=== PATIENT | female | born 1985 | race Caucasian/White ===

== ENCOUNTER 2016-12-23 18:52 | Emergency (ER) | payer BC ==
[2016-12-23] MEDS ORDERED: KETOROLAC 60 MG/2 ML VIAL IM STA (19:25)
[2016-12-23 19:28] VITALS: BP 130/80; PULSE 94; RESP 16; TEMP 97.8
--- NOTE | 2016-12-23 19:28 | ED ---
General Adult HPI - General Stated complaint: knee pain Time Seen by Provider: 12/23/16 19:21 Source: RN notes reviewed - History of Present Illness Initial comments: 31-year-old female presents emergency Department chief complaint of right knee pain. Patient states she has been suffering from right knee pain for the past few weeks and has been seen her family care doctor for this. Patient states she recently was driving vacation states that she noticed that her knee pain worsened as well as the leg became swollen. Patient states she states the pain into the calf. Patient states she's getting pain along the anterior knee as well. Patient denies any falls traumas or injuries that she is aware of but she states that she was concerned due to her symptoms so she thought that she should be evaluated. Patient states she has not had any other symptoms at this. Patient denies any chest pain or shortness of breath.Patient denies any recent fever, chills, shortness of breath, chest pain, back pain, abdominal pain , nausea vomiting, numbness or tingling, dysuria or hematuria, constipation or diarrhea, headaches or visual changes, or any other current symptoms. - Related Data Home Medications Medication Instructions Recorded Confirmed Gabapentin [Gabapentin] 600 mg PO HS 12/23/16 12/23/16 Previous Rx's Medication Instructions Recorded Ibuprofen [Motrin] 600 mg PO Q6HR PRN #20 tab 12/23/16 Allergies Allergy/AdvReac Type Severity Reaction Status Date / Time No Known Allergies Allergy Verified 12/23/16 19:27 Review of Systems ROS Statement: Those systems with pertinent positive or pertinent negative responses have been documented in the HPI. ROS Other: All systems not noted in ROS Statement are negative. Past Medical History Past Medical History: Diabetes Mellitus History of Any Multi-Drug Resistant Organisms: None Reported Past Surgical History: Tonsillectomy Additional Past Surgical History / Comment(s): ankle surgury Past Anesthesia/Blood Transfusion Reactions: No Reported Reaction Past Psychological History: No Psychological Hx Reported Smoking Status: Former smoker Past Alcohol Use History: None Reported Past Drug Use History: None Reported - Past Family History Mother Family Medical History: Coronary Artery Disease (CAD) General Exam - General Exam Comments Initial Comments: General: The patient is awake and alert, in no distress, and does not appear acutely ill. Neck: The neck is supple, there is no tenderness. Cardiovascular: There is a regular rate and rhythm. No murmur, rub or gallop is appreciated. Respiratory: Lungs are clear to auscultation, respirations are non-labored, breath sounds are equal. No wheezes, stridor, rales, or rhonchi. Musculoskeletal: Sensation intact with 2+ pulses. Extremity. Vital motion of right ankle and right knee. Negative Homans sign. Some tenderness anterior to the medial aspect. Neurological: CN II-XII intact, There are no obvious motor or sensory deficits. Coordination appears grossly intact. Speech is normal. Skin: Skin is warm and dry and no rashes or lesions are noted. Psychiatric: Normal mood and affect. Course Vital Signs 12/23/16 19:20 Temperature 97.8 F Pulse Rate 94 Respiratory 16 Rate Blood Pressure 130/80 O2 Sat by Pulse 98 Oximetry Medical Decision Making - Medical Decision Making 31-year-old female presents emergency Department chief complaint of right knee pain. This time patient underwent AN X-RAY DOES NOT SHOW AN ACUTE PROCESS. WE DISCUSSED MOST LIKELY PATIENT HAS A RIGHT KNEE SPRAIN. WE DID GIVE HER FOLLOW- UP WITH ORTHOPEDIC RETURN [facility]ERS. WE DISCUSSED ALL PATIENT'S QUESTIONS. SHE STATED THAT SHE UNDERSTOOD THE PLAN. SHE WILL BE DISCHARGED HOME. - Radiology Data Radiology results: report reviewed, image reviewed Disposition Clinical Impression: Right knee sprain Disposition: HOME SELF-CARE Condition: Stable Instructions: Knee Sprain (ED) Additional Instructions: Please use medication as discussed. Please follow up with family doctor if symptoms have not improved over the next two days. Please return to the emergency room if your symptoms increase or worsen or for any other concerns. Prescriptions: Ibuprofen [Motrin] 600 mg PO Q6HR PRN #20 tab PRN Reason: Pain Referrals: Lucie Kennedy DO [Primary Care Provider] - 1-2 days Time of Disposition: 20:17
--- NOTE | 2016-12-23 19:52 | US ---
EXAMINATION TYPE: US venous doppler duplex LE RT DATE OF EXAM: 12/23/2016 7:46 PM COMPARISON: NONE CLINICAL HISTORY: Pain in right leg after traveling in a car. SIDE PERFORMED: right TECHNIQUE: The lower extremity deep venous system is examined utilizing real time linear array sonog jhonatan with graded compression, doppler sonography and color-flow sonography. VESSELS IMAGED: External Iliac Vein (EIV) Common Femoral Vein Deep Femoral Vein Greater Saphenous Vein * Femoral Vein Popliteal Vein Small Saphenous Vein * Proximal Calf Veins (* superficial vessels) Right Leg: Negative for DVT IMPRESSION: Normal exam. No evidence of deep venous thrombosis in the right leg.
--- NOTE | 2016-12-23 20:12 | XR ---
EXAMINATION TYPE: XR knee complete RT DATE OF EXAM: 12/23/2016 COMPARISON: NONE HISTORY: Pain and swelling TECHNIQUE: 3 views FINDINGS: I see no fracture nor dislocation. Joint spaces are fairly normal. There is no sign of knee joint effusion. IMPRESSION: Negative right knee exam.
--- NOTE | 2016-12-23 20:18 | ED ---
Disposition Clinical Impression: Right knee sprain Disposition: HOME SELF-CARE Condition: Stable Instructions: Knee Sprain (ED) Additional Instructions: Please use medication as discussed. Please follow up with family doctor if symptoms have not improved over the next two days. Please return to the emergency room if your symptoms increase or worsen or for any other concerns. Prescriptions: Ibuprofen [Motrin] 600 mg PO Q6HR PRN #20 tab PRN Reason: Pain Referrals: Lucie Kennedy DO [Primary Care Provider] - 1-2 days Rogers Alvarez MD [STAFF PHYSICIAN] - 1-2 days Time of Disposition: 20:18
== END 2016-12-23 20:27 | disposition home or self-care (01) ==
LOC: EC 18:52
DX: S83.91XA Sprain of unspecified site of right knee, initial encounter (principal); X58.XXXA Exposure to other specified factors, initial encounter; Z87.891 Personal history of nicotine dependence; Z79.899 Other long term (current) drug therapy
CPT/HCPCS: 73562; 93971; 99284; 96372; J1885

== ENCOUNTER 2017-04-04 17:20 | Emergency (ER) | payer BC ==
[2017-04-04] MEDS ORDERED: FAMOTIDINE 20 MG/2 ML VIAL IV STA (17:55)
[2017-04-04] MEDS ORDERED: MAG HYDROX/AL HYDROX/SIMETH 30 ML CUP PO STA (17:55)
--- NOTE | 2017-04-04 18:00 | ED ---
Chest Pain HPI - General Chief Complaint: Chest Pain Stated Complaint: chest pain and right shoulder/neck Time Seen by Provider: 04/04/17 17:49 Source: patient Mode of arrival: wheelchair Limitations: no limitations - History of Present Illness Initial Comments: This is a 31-year-old female with no past medical history who presents emergency department for chest burning. She states that it started approximate 4-1/2 hours ago. It got worse approximately 20 minutes after eating dinner which was an hour and a half ago. Since then it has improved however she has had persistent symptoms. She states that it did radiate to her right shoulder blade and also into her right neck. She states it feels like a burning sensation. She also states that she felt like her right arm was cold area that has resolved as well. No shortness of breath. The pain is not pleuritic or tearing in nature. She has no history of PE or DVT. No first 3 relatives with CAD. She does smoke. - Related Data Home Medications Medication Instructions Recorded Confirmed Gabapentin [Gabapentin] 600 mg PO BID PRN 12/23/16 04/04/17 Baclofen [Lioresal] 10 mg PO HS PRN 04/04/17 04/04/17 Previous Rx's Medication Instructions Recorded HYDROcodone/APAP 5-325MG [[place] 1 tab PO Q4HR PRN #15 tab 04/04/17 5-325] Allergies Allergy/AdvReac Type Severity Reaction Status Date / Time topiramate [From Topamax] Allergy Swelling/It Verified 04/04/17 18:39 haley Review of Systems ROS Statement: Those systems with pertinent positive or pertinent negative responses have been documented in the HPI. ROS Other: All systems not noted in ROS Statement are negative. EKG Findings - EKG Comments: EKG Findings:: EKG showing sinus bradycardia with a rate of 57. No abnormal ST segment changes or T-wave inversions. QTC is 422. Other intervals are normal. No ectopy. Past Medical History Past Medical History: Diabetes Mellitus Additional Past Medical History / Comment(s): gestational dm History of Any Multi-Drug Resistant Organisms: None Reported Past Surgical History: Tonsillectomy Additional Past Surgical History / Comment(s): ankle surgury Past Anesthesia/Blood Transfusion Reactions: No Reported Reaction Past Psychological History: No Psychological Hx Reported Smoking Status: Current every day smoker Past Alcohol Use History: Occasional Past Drug Use History: None Reported - Past Family History Mother Family Medical History: Coronary Artery Disease (CAD) General Exam - General Exam Comments Initial Comments: Constitutional: Awake alert Appears comfortable Head: Normocephalic atraumatic Eyes: no conjunctival injection No scleral icterus EOMI Neck: No JVD Supple Heart: Regular rate rhythm normal S1-S2 no murmurs Lungs: Clear to auscultation bilaterally No wheezing No rales Abdomen: Soft nondistended nontender Extremities: Non edematous DP pulses intact Radial pulses intact Neuro: A&Ox3 No focal neurologic deficits Psych: Appropriate mood and affect Limitations: no limitations Course Vital Signs 04/04/17 04/04/17 17:43 19:14 Temperature 98.1 F Pulse Rate 58 L 62 Respiratory 16 18 Rate Blood Pressure 122/77 128/59 O2 Sat by Pulse 98 Oximetry Chest Pain MDM - MDM This is a 31-year-old female who presents emergency department for chest pain and right back pain. Patient had mild elevation in LFTs and ultrasound performed that showed cholelithiasis. There was a positive sonographic Linares' s however no leukocytosis. The patient no tenderness in the right upper quadrant on physical examination. This time I do not feel the patient has acute cholecystitis. He is likely suffering from cholelithiasis. Her pain was improved over time. I'm going to send her home with surgery follow-up. She was given pain medications as needed as well. She can return if she has worsening or changing symptoms. All questions were answered. Disposition Clinical Impression: Cholelithiasis Disposition: HOME SELF-CARE Condition: Stable Instructions: Gallstones (ED) Prescriptions: HYDROcodone/APAP 5-325MG [[place] 5-325] 1 tab PO Q4HR PRN #15 tab PRN Reason: Pain Referrals: Lucie Kennedy DO [Primary Care Provider] - 1-2 days Zuleima Sultana MD [STAFF PHYSICIAN] - 1-2 days
[2017-04-04 18:28] LABS: Basophils # (A) 0.1 k/uL (0-0.2); Basophils % (A) 1 %; CH 28.8; CHCM 33.3; Eosinophils # (A) 0.3 k/uL (0-0.7); Eosinophils % (A) 3 %; HCT 42.6 % (34.0-46.0); HDW 2.42; HGB 14.4 gm/dL (11.4-16.0); Luc # (Auto) 0.16; Luc % (Auto) 2; Lymphocytes # (A) 2.7 k/uL (1.0-4.8); Lymphocytes % (A) 27 %; MCH 29.3 pg (25.0-35.0); MCHC 33.8 g/dL (31.0-37.0); MCV 86.7 fL (80.0-100.0); Mean Platelet Volume 6.7; Monocytes # (A) 0.5 k/uL (0-1.0); Monocytes % (A) 5 %; Neutrophils # (A) 6.3 k/uL (1.3-7.7); Neutrophils % (A) 63 %; RBC 4.91 m/uL (3.80-5.40); RDW 13.4 % (11.5-15.5); WBC 9.9 k/uL (3.8-10.6)
[2017-04-04 18:37] LABS: ALT 101 U/L (9-52); AST 127 U/L (14-36); Alkaline Phosphatase 75 U/L (38-126); Anion Gap 11 mmol/L; Blood Urea Nitrogen 13 mg/dL (7-17); Calcium 9.7 mg/dL (8.4-10.2); Carbon Dioxide 25 mmol/L (22-30); Chloride 104 mmol/L (98-107); Glucose 132 mg/dL (74-99); Non-African American GFR(MDRD) >60 (>60 ml/min/1.73 sqM); Sodium 140 mmol/L (137-145); Total Bilirubin 0.5 mg/dL (0.2-1.3); Total Protein 7.1 g/dL (6.3-8.2)
[2017-04-04 19:15] VITALS: RESP 18
--- NOTE | 2017-04-04 19:23 | XR ---
EXAMINATION TYPE: XR chest 2V DATE OF EXAM: 04/04/2017 COMPARISON: NONE HISTORY: Chest pain TECHNIQUE: Frontal and lateral views of the chest are obtained. FINDINGS: There is no focal air space opacity, pleural effusion, or pneumothorax seen. The cardiac silhouette size is within normal limits. The osseous structures are intact. IMPRESSION: No acute cardiopulmonary process.
--- NOTE | 2017-04-04 19:35 | US ---
EXAMINATION TYPE: US abdomen limited DATE OF EXAM: 04/04/2017 COMPARISON: NONE CLINICAL HISTORY: epigastric pain/elevated LFT. larger habitus, acute epigastic pain that radiates up to shoulder EXAM MEASUREMENTS: Liver Length: 17.9 cm Gallbladder Wall: 0.2 cm CBD: 0.5 cm Right Kidney: 13.2 x 4.7 x 5.8 cm Some exam limitations due to overlying bowel gas. Pancreas: Obscured by bowel gas Liver: upper limits in size, heterogeneous, attenuating Gallbladder: contracted with numerous stones. There is a "wall echo shadow" sign. Evidence for sonographic Linares's sign: yes CBD: wnl Right Kidney: wnl IMPRESSION: 1. Cholelithiasis. There is a wall echo shadow sign. 2. Heterogeneous liver most compatible with hepatic steatosis.
[2017-04-04 20:17] VITALS: BP 123/58; PULSE 63; TEMP 97.7
== END 2017-04-04 20:17 | disposition home or self-care (01) ==
LOC: EC 17:20
DX: K80.20 Calculus of gallbladder without cholecystitis without obstruction (principal); R79.89 Other specified abnormal findings of blood chemistry; R07.9 Chest pain, unspecified; M54.2 Cervicalgia; M25.511 Pain in right shoulder; F17.200 Nicotine dependence, unspecified, uncomplicated; Z88.8 Allergy status to other drugs, medicaments and biological substances; Z82.49 Family history of ischemic heart disease and other diseases of the circulatory system
CPT/HCPCS: 36415; 71020; 76705; 80053; 81025; 82553; 83690; 84484; 85025; 93005; 96374; 99285

== ENCOUNTER 2017-04-15 11:01 | Day surgery (SDC) | payer BC ==
[2017-04-14 09:45] VITALS: BMI 40.0
[~2017-04-15 11:01] MED LIST: DEXAMETHASONE SOD PHOSPHATE 10 MG/ML 1 ML VIAL IV ONE; HEPARIN SODIUM,PORCINE 5,000 UNIT/ML 1 ML VIAL SQ ONE; ceFAZolin 2 GM in SODIUM CHLORIDE 0.9% 100 ML IVPB ONE
[2017-04-15] MEDS: LACTATED RINGERS 1,000 ML IV SCH ×2 (11:32→11:35)
[2017-04-15] MEDS ORDERED: LIDOCAINE 1% 20 ML VIAL (10MG/ML) FOR IV START INTRADERMA ONE ×2 (11:34→11:36)
[2017-04-15] MEDS: ONDANSETRON 4 MG/2 ML VIAL IVP ONE ×2 (11:38→15:20)
[2017-04-15] MEDS ORDERED: MIDAZOLAM 2 MG/2 ML VIAL ONE (12:33)
[2017-04-15] MEDS ORDERED: SUCCINYLCHOLINE CHLORIDE 100 MG/5 ML SYR IV ONE (12:33)
[2017-04-15] MEDS ORDERED: LIDOCAINE 1% INJ 10MG/ML (20 ML MDV) ONE (12:33)
[2017-04-15] MEDS ORDERED: fentaNYL (PF) 50 MCG/ML 2 ML AMP ONE (12:33)
[2017-04-15] MEDS ORDERED: ROCURONIUM BROMIDE 10 MG/ML 10 ML VIAL IV ONE (12:33)
[2017-04-15] MEDS ORDERED: GLYCOPYRROLATE 0.2 MG/ML 2 ML VIAL ONE (12:33)
[2017-04-15] MEDS ORDERED: PROPOFOL 10 MG/ML 20 ML VIAL IV ONE (12:33)
[2017-04-15] MEDS ORDERED: NEOSTIGMINE 1 MG/ML 10 ML VIAL ONE (12:33)
[2017-04-15] MEDS ORDERED: HYDROmorphone (PF) 1 MG/ML ONE (12:33)
[2017-04-15] MEDS ORDERED: BUPIVACAINE (PF) 0.25% 30 ML VIAL SQ ONE (13:24)
--- NOTE | 2017-04-15 14:35 | P.OP ---
Date of Procedure: 04/15/17 Preoperative Diagnosis: Chronic cholecystitis Postoperative Diagnosis: Chronic cholecystitis with cholelithiasis Procedure(s) Performed: Robot assisted laparoscopic choelcystectomy Anesthesia: GETA Pathology: other Condition: stable Description of Procedure: Patient is a 31-year-old female who presented with right upper quadrant pain and a clinical diagnosis of chronic cholecystitis was made. After appropriate informed consent and answering all the patient's questions patient taken the operating placement position and given general anesthesia with endotracheal intubation. After an unsuccessful attempt to use the Veress needle for insufflation at the palmers point in the left upper quadrant was identified and Veress needle was used to enter the abdominal cavity and insufflated to 15 mmHg after confirming its position with the drop test. Once the abdomen insufflated 5 mm Optiview was used to enter the abdominal cavity through the palmers point. Three 8 mm ports were then placed for the robot in the left upper quadrant and right upper quadrant. A 12mm port was placed in the periumbilicla port and an 8 mmm port in the left upper quadrant. Once ports were then placed the patient was placed in appropriate position of left side down and reverse Trendelenburg. The robot was docked and Prograsp was taken in arm 3,cardiere in arm 2. Camera was through the 12 mm umbilical port site. And a hook cautery was taken in the arm 1. Gallbladder was retracted cephalad and superiorly. Inflammatory adhesions were taken down with the help of electrocautery. Appropriate critical view was obtained in cystic duct and artery were isolated. 2 clips proximally and 1 distally were plced in the artery and cystic duct and then and transected sharply with the help of scissors. The gallbladder was then taken off the gallbladder fossa with the help of electrocautery. All that was sucked dry. . Gallbladder was then placed in Endo Catch bag and removed through 12 port site after undocking the robot. Abdomen was then again visualized and completely irrigated and sucked dry. 12 mm port site was closed with the help of a Dave Barron under direct laparoscopic view using 0 Vicryl. At this point the procedure was terminated and all ports were removed. Local anesthesia infiltrated into the incisions skin was closed with 4-0 Monocryl and Dermabond was applied. Patient is tolerated the porcedure well with no complications. She was extubated and taken to recovery room in stable condition.
[2017-04-15 14:46] VITALS: RESP 16; TEMP 97
[2017-04-15] MEDS: HYDROmorphone 0.5 MG/0.5 ML SYRINGE IVP PRN ×2 (15:14→15:25)
[2017-04-15] MEDS ORDERED: LACTATED RINGERS 1,000 ML IV ONE (15:31)
[2017-04-15 16:18] VITALS: BP 131/85; PULSE 83
== END 2017-04-15 16:32 | disposition home or self-care (01) ==
LOC: OR 11:01
PROVIDERS: ATTEND Surgery
DX: K80.10 Calculus of gallbladder with chronic cholecystitis without obstruction (principal); E66.01 Morbid (severe) obesity due to excess calories; Z68.39 Body mass index [BMI] 39.0-39.9, adult; F17.200 Nicotine dependence, unspecified, uncomplicated; K21.9 Gastro-esophageal reflux disease without esophagitis; Z79.899 Other long term (current) drug therapy; Z79.891 Long term (current) use of opiate analgesic
CPT/HCPCS: 47562; S2900; 81025; 88304

== ENCOUNTER 2018-01-24 09:50 | Emergency (ER) | payer BC ==
[2018-01-24 10:00] VITALS: RESP 18
[2018-01-24] MEDS ORDERED: IBUPROFEN 600 MG TAB PO STA (10:17)
--- NOTE | 2018-01-24 10:58 | ED ---
General Adult HPI - General Chief complaint: Extremity Injury, Lower Stated complaint: Left Ankle Injury Time Seen by Provider: 01/24/18 10:06 Source: patient Mode of arrival: ambulatory Limitations: no limitations - History of Present Illness Initial comments: This 32-year-old female with past medical history of disc herniation and anxiety who presents today for chief complaint of left ankle and calf pain. She states that Wednesday, January 21 she was [facility] the [facility] when the sidewalk drop down and she rolled her ankle she admitted to hearing a crackling sound and there is immediately swelling on the left lateral ankle. She rolled her ankle inward. She was able to ambulate despite the pain, bearing full weight. She continued to walk on ankle the weekend because she was camping, and wanted to try to walk it off. She was taking Excedrin for pain management which she states helped minimally. Over the weekend the swelling reduced, denied ecchymosis. By Wednesday the pain or ankle decreased however she noticed pain in the posterior calf. She states that this pain is 5/10 to touch and increases with toe walking and weightbearing to a 6/7 10. She describes it as a aching pain. Pt denies any erythema, ecchymosis of the calf, hx of recent travel, hx of blood clots, contro luse, current , or hx of CA, chest pain, SOB, edema of the calf, paresthesias, numbness or loss of sensation of the lower extremities bilaterally. Patient presented to the emergency department when the pain in her calf did not subside. Pt presents to the emergency department in stable condition. Patient denies any recent fever, chills, shortness of breath, chest pain, back pain, abdominal pain, nausea or vomiting, numbness or tingling, dysuria or hematuria, constipation or diarrhea, headaches or visual changes, or any other complaints. - Related Data Home Medications Medication Instructions Recorded Confirmed Baclofen 10 mg PO HS 01/24/18 01/24/18 Escitalopram [Lexapro] 5 mg PO DAILY 01/24/18 01/24/18 Gabapentin 600 mg PO HS 01/24/18 01/24/18 Previous Rx's Medication Instructions Recorded Ibuprofen [Motrin] 600 mg PO Q8HR PRN 5 Days #15 tab 01/24/18 Allergies Allergy/AdvReac Type Severity Reaction Status Date / Time topiramate [From Topamax] Allergy Swelling/It Verified 01/24/18 10:08 haley Review of Systems ROS Statement: Those systems with pertinent positive or pertinent negative responses have been documented in the HPI. ROS Other: All systems not noted in ROS Statement are negative. Constitutional: Denies: fever, chills Eyes: Denies: vision change ENT: Denies: throat pain Respiratory: Denies: cough, dyspnea Cardiovascular: Denies: chest pain, palpitations, edema Gastrointestinal: Denies: abdominal pain, nausea, vomiting, diarrhea Genitourinary: Denies: urgency, dysuria, frequency, hematuria Musculoskeletal: Reports: as per HPI, joint swelling, arthralgia. Denies: back pain Skin: Denies: rash, lesions Neurological: Denies: headache, weakness, numbness, paresthesias, abnormal gait Past Medical History Past Medical History: Diabetes Mellitus Additional Past Medical History / Comment(s): hx gestational diabetes-2 pregnancies, gallstones, History of Any Multi-Drug Resistant Organisms: None Reported Past Surgical History: Cholecystectomy, Orthopedic Surgery, Tonsillectomy Additional Past Surgical History / Comment(s): pam heel sugery Past Anesthesia/Blood Transfusion Reactions: No Reported Reaction Past Psychological History: No Psychological Hx Reported Smoking Status: Current every day smoker Past Alcohol Use History: None Reported Past Drug Use History: None Reported - Past Family History Mother Family Medical History: No Reported History General Exam - General Exam Comments Initial Comments: General: The patient is awake and alert, in no distress, and does not appear acutely ill. Eye: Pupils are equal, round and reactive to light, extra-ocular movements are intact. No nystagmus. There is normal conjunctiva bilaterally. No signs of icterus. Ears, nose, mouth and throat: There are moist mucous membranes and no oral lesions. Neck: The neck is supple, there is no tenderness or JVD. Cardiovascular: There is a regular rate and rhythm. No murmur, rub or gallop is appreciated. Respiratory: Lungs are clear to auscultation, respirations are non-labored, breath sounds are equal. No wheezes, stridor, rales, or rhonchi. Musculoskeletal: Normal ROM of the LE joints including ankles b/l, no tenderness upon ranging. No evidence of crepitus or laxity. Strength 5/5 of the foot and ankle b/l equally. Sensation intact of LE b/l. DP pulses equal bilaterally 2+. Capillary refil <2 secs. Pain in calf with compression of tibia and fibula and dorsiflexion of foot. Pt able to heel and toe walk. With increased pain upon toe walk. [place] intact. Neurological: A&O x 3. CN II-XII intact, There are no obvious motor or sensory deficits. Coordination appears grossly intact. Speech is normal. Skin: Skin is warm and dry and no rashes or lesions are noted. Psychiatric: Cooperative, appropriate mood & affect, normal judgment. Limitations: no limitations Course Vital Signs 01/24/18 09:58 Temperature 98.7 F Pulse Rate 68 Respiratory 18 Rate Blood Pressure 130/80 O2 Sat by Pulse 99 Oximetry Medical Decision Making - Medical Decision Making X-rays of the left tibia-fibula and left ankle revealed no acute process or fracture. Negative doppler of left LE for DVT. Given physican exam findings and negative imaging I am suspicious for possible high ankle sprain. Pt was educated on RICE instructions and follow-up with primary care physician. Patient has an ankle brace currently and states that she will continue use this instead of an Saji bandage. Patient was given a prescription of 600 mg ibuprofen every 8 hours for pain management as needed. As discussed with Dr. Becerril who agrees with the plan. Patient agrees with the plan and discharged in stable condition. Disposition Clinical Impression: High ankle sprain of left lower extremity Disposition: HOME SELF-CARE Instructions: Ankle Sprain (ED) Additional Instructions: Please use medication as discussed. Please follow-up with family doctor in the next 2 days. Please return to emergency room if the symptoms increase or worsen or for any other concerns. Prescriptions: Ibuprofen [Motrin] 600 mg PO Q8HR PRN 5 Days #15 tab PRN Reason: Pain Is patient prescribed a controlled substance at d/c from ED?: No Referrals: Lucie Kennedy DO [Primary Care Provider] - 1-2 days Time of Disposition: 11:55
--- NOTE | 2018-01-24 11:27 | US ---
EXAMINATION TYPE: US venous doppler duplex LE LT DATE OF EXAM: 01/24/2018 11:02 AM COMPARISON: CLINICAL HISTORY: Pain. Patient states rolling ankle on Wednesday with having difficulty standing. No h x of blood clots. Not on blood thinners. SIDE PERFORMED: Left TECHNIQUE: The lower extremity deep venous system is examined utilizing real time linear array sonog jhonatan with graded compression, doppler sonography and color-flow sonography. VESSELS IMAGED: External Iliac Vein (EIV) Common Femoral Vein Deep Femoral Vein Greater Saphenous Vein * Femoral Vein Popliteal Vein Small Saphenous Vein * Proximal Calf Veins (* superficial vessels) Grayscale, color doppler, spectral doppler imaging performed of the deep veins of the left lower extr emity. There is normal flow, compressibility, vascular waveforms. Left Leg: Negative for DVT IMPRESSION: No sonographic evidence of deep venous thrombosis within the left lower extremity.
--- NOTE | 2018-01-24 11:29 | XR ---
EXAMINATION TYPE: XR tibia fibula LT DATE OF EXAM: 01/24/2018 CLINICAL HISTORY: Left ankle pain after injury. Pain localized to the posterior proximal tibia/fibula . TECHNIQUE: Two views of the left leg are obtained. COMPARISON: None. FINDINGS: Distal tibia and fibula are not included on the frontal view however are included on the a nkle radiographs of the same date. There is no acute fracture or dislocation seen in the left tibia o r fibula. The left knee and ankle joints appear within normal limits. The overlying soft tissue quyen ears unremarkable. IMPRESSION: There is no acute fracture or dislocation seen in the left tibia or fibula.
--- NOTE | 2018-01-24 11:30 | XR ---
EXAMINATION TYPE: XR ankle complete LT DATE OF EXAM: 01/24/2018 CLINICAL HISTORY: Left ankle pain after injury. TECHNIQUE: Frontal, lateral and oblique images of the left ankle are obtained. COMPARISON: None. FINDINGS: There is no acute fracture/dislocation evident in the left ankle. The ankle mortise appea rs within normal limits. The overlying soft tissue appears unremarkable. IMPRESSION: There is no acute fracture or dislocation in the left ankle.
[2018-01-24 12:06] VITALS: BP 124/77; PULSE 63; TEMP 97.9
== END 2018-01-24 12:06 | disposition home or self-care (01) ==
LOC: EC 09:50
DX: S93.402A Sprain of unspecified ligament of left ankle, initial encounter (principal); M79.662 Pain in left lower leg; F17.200 Nicotine dependence, unspecified, uncomplicated; Z98.890 Other specified postprocedural states; Z79.899 Other long term (current) drug therapy; Z88.8 Allergy status to other drugs, medicaments and biological substances; X50.1XXA Overexertion from prolonged static or awkward postures, initial encounter; Y93.01 Activity, walking, marching and hiking
CPT/HCPCS: 99284

== ENCOUNTER → 2018-10-10 | Outpatient (CLI) | payer OTHER ==
--- NOTE | 2018-10-10 11:51 | MR ---
EXAMINATION TYPE: MR lumbar spine wo con DATE OF EXAM: 10/10/2018 6:48 AM COMPARISON: September 07, 2014 HISTORY: Intervertebral disc displacement, lumbar Multiplanar, MultiSpin echo imaging of the lumbar spine was performed. L1-L2: Normal disc appearance without desiccation. No herniation, protrusion or disc bulging. No ca nal stenosis is present. Foramina are patent bilaterally. L2-L3: Normal disc appearance without desiccation. No herniation, protrusion or disc bulging. No ca nal stenosis is present. Foramina are patent bilaterally. L3-L4: Normal disc appearance without desiccation. No herniation, protrusion or disc bulging. No ca nal stenosis is present. Foramina are patent bilaterally. L4-L5: Normal disc appearance without desiccation. No herniation, protrusion or disc bulging. No ca nal stenosis is present. Foramina are patent bilaterally. L5-S1: There is moderate disc desiccation noted. Right paracentral subligamentous disc herniation is stable. There is a right lateral recess stenosis and right foraminal encroachment. No evidence for ce ntral stenosis at this time. Lumbar segments are intact. No paraspinal masses are identified. Conus medullaris has a normal appe arance. IMPRESSION: 1. Stable disc desiccation right paracentral disc herniation at L5-S1 with right lateral recess steno sis.
== END | disposition home or self-care (01) ==
LOC: RADMRIMAIN 06:09
PROVIDERS: ATTEND Family Medicine
DX: M48.07 Spinal stenosis, lumbosacral region (principal); M51.27 Other intervertebral disc displacement, lumbosacral region
CPT/HCPCS: 72148

== ENCOUNTER → 2018-11-29 | Outpatient (CLI) | payer OTHER ==
--- NOTE | 2018-11-29 10:25 | XR ---
EXAMINATION TYPE: XR chest 2V DATE OF EXAM: 11/29/2018 COMPARISON: 04/04/2017 HISTORY: M 54.14 TECHNIQUE: Frontal and lateral views of the chest are obtained. FINDINGS: There is no focal air space opacity, pleural effusion, or pneumothorax seen. The cardiac silhouette size is within normal limits. The osseous structures are intact. IMPRESSION: No acute cardiopulmonary process.
[2018-11-29 10:27] LABS: Basophils % (A) 1 %; Eosinophils # (A) 0.2 k/uL (0-0.7); Eosinophils % (A) 2 %; HCT 43.3 % (34.0-46.0); HGB 14.2 gm/dL (11.4-16.0); Lymphocytes # (A) 2.5 k/uL (1.0-4.8); Lymphocytes % (A) 30 %; MCHC 32.8 g/dL (31.0-37.0); MCV 85.2 fL (80.0-100.0); Mean Platelet Volume 6.8; Monocytes # (A) 0.3 k/uL (0-1.0); Monocytes % (A) 4 %; Neutrophils # (A) 5.2 k/uL (1.3-7.7); Neutrophils % (A) 61 %; Platelet Count 304 k/uL (150-450); RBC 5.08 m/uL (3.80-5.40); RDW 13.7 % (11.5-15.5); WBC 8.4 k/uL (3.8-10.6)
[2018-11-29 10:45] LABS: Anion Gap 8 mmol/L; Blood Urea Nitrogen 18 mg/dL (7-17); Calcium 10.1 mg/dL (8.4-10.2); Carbon Dioxide 27 mmol/L (22-30); Chloride 105 mmol/L (98-107); Sodium 140 mmol/L (137-145)
[2018-11-29 10:47] LABS: INR 0.9 (<1.2); Prothrombin Time 9.7 sec (9.0-12.0)
[2018-11-29 10:50] LABS: Appearance,Urine Cloudy (Clear); Bacteria,Urine Occasional /hpf; Bilirubin,Urine Negative (Negative); Blood,Urine Negative (Negative); Color,Urine Light Yellow; Glucose,Urine (UA) Negative (Negative); Hyaline Casts,Urine 9 /lpf (0-2); Ketones,Urine Negative (Negative); Leukocyte Esterase,Urine Negative (Negative); Mucus,Urine Occasional /hpf; Nitrite,Urine Negative (Negative); Protein,Urine Negative (Negative); RBC,Urine <1 /hpf (0-5); Specific Gravity,Urine 1.016 (1.001-1.035); Squamous Epithelial Cell,Urine 1 /hpf (0-4); Urobilinogen,Urine <2.0 mg/dL (<2.0); WBC,Urine 4 /hpf (0-5); White Blood Cell Casts,Urine 12 /lpf (0)
[2018-11-29 11:01] LABS: Glucose 123 mg/dL (74-99); Potassium 4.7 mmol/L (3.5-5.1)
== END | disposition home or self-care (01) ==
LOC: LABWHC1 09:06
PROVIDERS: ATTEND Orthopaedic Surgery Orthopaedic Surgery of the Spine
DX: Z01.818 Encounter for other preprocedural examination (principal); Z01.812 Encounter for preprocedural laboratory examination; M51.27 Other intervertebral disc displacement, lumbosacral region
CPT/HCPCS: 71046; 80048; 81001; 85025; 85610; 85730; 93005

== ENCOUNTER → 2018-12-07 | Outpatient (CLI) | payer OTHER | LOC: LABPAT 09:01 | PROVIDERS: ATTEND Orthopaedic Surgery Orthopaedic Surgery of the Spine | DX: Z01.812 Encounter for preprocedural laboratory examination (principal); M51.27 Other intervertebral disc displacement, lumbosacral region | CPT/HCPCS: 36415; 86850; 86900; 86901 ==

== ENCOUNTER 2018-12-14 14:03 | Day surgery (SDC) | payer OTHER ==
[~2018-12-14 14:03] MED LIST changes: +BACITRACIN 50,000 UNIT, POLYMYXIN B 500,000 UNIT in SODIUM CHLORIDE 0.9% IRRIGATIO 1,00... IRRIGATION ONE; -HEPARIN SODIUM,PORCINE 5,000 UNIT/ML 1 ML VIAL SQ ONE; +LACTATED RINGERS 1,000 ML IV SCH; +LIDOCAINE 1% 20 ML VIAL (10MG/ML) FOR IV START INTRADERMA PRN; +ONDANSETRON 4 MG/2 ML VIAL IVP ONE; +ONDANSETRON 4 MG/2 ML VIAL IVP PRN; +SCOPOLAMINE 1.5MG/72HR PATCH TRANSDERM ONE; -ceFAZolin 2 GM in SODIUM CHLORIDE 0.9% 100 ML IVPB ONE; +ceFAZolin IN SWFI 2 GM/20 ML SYRINGE IVP ONE
[2018-12-14 14:54] LABS: Glucose,Whole Blood 108 mg/dL (75-99)
[2018-12-14] MEDS ORDERED: LIDOCAINE 1% INJ 10MG/ML (20 ML MDV) ONE (16:37)
[2018-12-14] MEDS ORDERED: SUCCINYLCHOLINE CHLORIDE 100 MG/5 ML SYR IV ONE (16:37)
[2018-12-14] MEDS ORDERED: PROPOFOL 10 MG/ML 20 ML VIAL IV ONE (16:37)
[2018-12-14] MEDS ORDERED: ROCURONIUM BROMIDE 10 MG/ML 10 ML VIAL IV ONE (16:37)
[2018-12-14] MEDS ORDERED: fentaNYL (PF) 50 MCG/ML 2 ML AMP ONE (16:37)
[2018-12-14] MEDS ORDERED: MIDAZOLAM 2 MG/2 ML VIAL ONE (16:37)
[2018-12-14] MEDS ORDERED: NEOSTIGMINE 1 MG/ML 10 ML VIAL ONE (16:37)
[2018-12-14] MEDS ORDERED: GLYCOPYRROLATE 0.2 MG/ML 2 ML VIAL ONE (16:37)
[2018-12-14] MEDS ORDERED: LIDOCAINE 0.5%-EPI 1:200,000 50 ML VIAL SQ ONE (17:00)
[2018-12-14] MEDS ORDERED: THROMBIN (BOVINE) 5,000 UNIT VIAL TOPICAL ONE (17:00)
[2018-12-14] MEDS ORDERED: GELATIN SPONGE,ABSORB (LARGE) 1 EACH SPONGE TOPICAL ONE (17:00)
[2018-12-14] MEDS ORDERED: methylPREDNISolone ACETATE 40 MG/ML 1 ML VIAL MISCELLANE ONE (17:33)
[2018-12-14] MEDS ORDERED: LACTATED RINGERS 1,000 ML IV ONE ×2 (17:34)
[2018-12-14] MEDS ORDERED: BENZOCAINE/MENTHOL LOZENG 1 EACH LOZENGE MUCOUS MEM PRN (18:01)
[2018-12-14] MEDS ORDERED: HYDROmorphone 1 MG/ML 1 ML SYRINGE IVP PRN (18:01)
[2018-12-14] MEDS ORDERED: HYDROmorphone 0.5 MG/0.5 ML SYRINGE IVP PRN (18:01)
[2018-12-14] MEDS ORDERED: IBUPROFEN 600 MG TAB PO PRN (18:02)
[2018-12-14] MEDS ORDERED: HYDROcodone/APAP 5-325MG 1 EACH TAB PO PRN ×2 (18:02)
[2018-12-14] MEDS ORDERED: KETOROLAC 30 MG/ML 1 ML VIAL IVP PRN (18:02)
--- NOTE | 2018-12-14 18:07 | P.OP ---
Date of Procedure: 12/14/18 Preoperative Diagnosis: Herniated nucleus pulposus L5-S1, right lower extremity radiculopathy, right lower extremity weakness, low back pain Postoperative Diagnosis: Same Anesthesia: GETA Pathology: none sent Condition: stable Disposition: PACU Description of Procedure: BRIEF OPERATIVE NOTE Preoperative Diagnosis:Herniated nucleus pulposus L5-S1, right lower extremity radiculopathy, right lower extremity weakness, low back pain Postoperative Diagnosis:Herniated nucleus pulposus L5-S1, right lower extremity radiculopathy, right lower extremity weakness, low back pain Procedure: Laminectomy and decompression with partial right foraminal decompression L5-S1 Discectomy for decompression L5-S1 Surgeon: Dr. Brooks Stage Set Designer: Shaggy CHAPMAN who is present throughout the entire the case persistence during positioning, dissection, exposure, visualization, and all crucial elements of the case as well as closure. Anesthesia: General anesthesia per Dr. Galvez Estimated blood loss: Approximately 50 mL Complications: None apparent Components implanted: None Disposition: To recovery room in good stable condition. OPERATIVE INDICATIONS The patient has been having issues in their lower back and lower extremities. She is having severe radicular pain and sciatica on the right lower extremity over an S1 distribution. She is unable large disc herniations L5-S1 with extruded fragment which correlated well with her low back and lower extremity symptoms. The patient has been through conservative treatment. She is not having any sustained benefit despite aggressive conservative care. We discussed various treatment options including surgery, and the patient wishes to proceed with surgery We discussed the risk, patient's alternatives and benefits of surgery including but not limited to, risk of bleeding risk of infection, risk of need for further surgery, risk of decreased, loss of motion, loss of function, nerve damage, paralysis, heart attack, blindness and . OPERATIVE SUMMARY After discussing all the risks, patient alternatives and benefits at length, the patient elected to proceed with surgical intervention, signed informed consent, and presented for their procedure. The patient was seen and examined in the preoperative holding area and the surgical site was marked. The patient was given antibiotics and brought to the operating room. The patient was sedated and intubated by anesthesia in standard fashion. The patient was positioned on to the operating room table in a prone position on the appropriate frame which was well-padded and well molded. We were careful to pad any bony prominences and pressure points. We were careful to maintain the patient's cervical spine and good neutral alignment and position throughout. The patient was prepped and draped in a normal standard fashion. An appropriate timeout and keystone protocol performed. We were able to proceed with the surgery. Fluoroscopy was utilized to establish the appropriate level. The local wound area was infiltrated with local anesthetic. An incision was made at the midline longitudinally over the appropriate levels of L5-S1. Dissection was taken down subcutaneously to the level of the fascia which was split midline. Dissection was taken over the lamina. Intraoperative fluoroscopy was taken which showed a marker at the appropriate level. With the appropriate level positively confirmed, at L5-S1 we were able to proceed with laminectomy. The wound was copiously irrigated and suctioned dry as had been done periodically throughout the case. I performed a laminectomy with a combination of curettes and a high-speed bur and Kerrison rongeurs. A small medial facetectomy was performed again further access. A partial foraminotomy was also performed. Portions of the ligamentum flavum were taken down to expose the dura and traversing nerve root. I was able to mobilize the traversing nerve root and gain access to the disc space. Note was made of obvious compression from the disc. There is extruded disc fragment causing compression as well. Protecting the soft tissue structures, a small annulotomy was established. I was able to perform discectomy and remove any extruded disc fragments and any loose fragments from within the disc itself. There is some significant disc desiccation noted. I tried to preserve the disc annulus that appeared stable. There were no further extruded fragments noted. There is no evidence of dural tear or leak. Good hemostasis maintained. The wound was copiously irrigated and suctioned dry. Good decompression and discectomy was noted. We were able to proceed with closure. The fascia was closed for a watertight closure. The subcuticular tissue was closed with absorbable suture. The wound was cleaned and dried and dressed with the appropriate dressing. The drapes were broken down. The patient was gently rolled back onto their hospital bed being careful to maintain their cervical spine and good neutral alignment and position. They were woken up by anesthesia, extubated, and brought to the recovery room in good stable condition. The patient will be admitted to the hospital for observation and for appropriate postoperative care, medical management and monitoring. We will continue to follow them closely about the postoperative course.
[2018-12-14] MEDS ORDERED: SODIUM CHLORIDE 0.9% 1,000 ML IV SCH (18:15)
[2018-12-14] MEDS: HYDROmorphone 0.5 MG/0.5 ML SYRINGE IVP PRN ×2 (18:41→18:46)
[2018-12-14] MEDS ORDERED: tiZANidine 4 MG TAB PO SCH (21:00)
[2018-12-14 21:20] VITALS: BMI 43.4
[2018-12-14 21:45] VITALS: BP 104/67; PULSE 82; RESP 18; TEMP 97.8
[2018-12-15] MEDS ORDERED: ceFAZolin IN SWFI 2 GM/20 ML SYRINGE IVP SCH
[2018-12-15] MEDS ORDERED: ESCITALOPRAM 5 MG TAB PO SCH (09:00)
[2018-12-15] MEDS ORDERED: SENNOSIDES-DOCUSATE SODIUM 1 EACH TAB PO SCH (09:00)
[2018-12-15] MEDS ORDERED: metFORMIN 500 MG TAB PO SCH (09:00)
--- NOTE | 2018-12-15 10:48 | FL ---
Fluoroscopy INDICATION: Lumbar laminectomy FINDINGS: Fluoroscopy time: 5 seconds. Images obtained: 1. IMPRESSIONS: 1. Documentation of fluoroscopy.
--- NOTE | 2018-12-15 10:49 | XR ---
Fluoroscopy INDICATION: Lumbar laminectomy, pain FINDINGS: Fluoroscopy time: 5 seconds. Images obtained: 1. IMPRESSIONS: 1. Documentation of fluoroscopy.
== END 2018-12-14 22:10 | disposition home or self-care (01) ==
LOC: OR 14:03 → 4SSUR 18:18 → OR 22:10
PROVIDERS: ATTEND Orthopaedic Surgery Orthopaedic Surgery of the Spine
DX: M51.17 Intervertebral disc disorders with radiculopathy, lumbosacral region (principal); M48.062 Spinal stenosis, lumbar region with neurogenic claudication; M48.07 Spinal stenosis, lumbosacral region; E11.9 Type 2 diabetes mellitus without complications; Z79.84 Long term (current) use of oral hypoglycemic drugs; Z79.899 Other long term (current) drug therapy; Z88.8 Allergy status to other drugs, medicaments and biological substances; Z87.891 Personal history of nicotine dependence
CPT/HCPCS: 86900; 86901; 86850; 72020; 36415; 63030; J2250; J1030; J2710; J2405; J2001; J3010; J0330; J2704; J1170; J0690

== ENCOUNTER → 2021-05-23 | Outpatient (CLI) | payer OTHER ==
[2021-05-23 20:01] LABS: Basophils # (A) 0.03 X 10*3/uL (0.00-0.10); Basophils % (A) 0.3 %; Eosinophils # (A) 0.13 X 10*3/uL (0.04-0.35); Eosinophils % (A) 1.2 %; HCT 45.3 % (37.2-46.3); HGB 14.9 g/dL (12.0-15.0); Lymphocytes # (A) 2.91 X 10*3/uL (0.90-5.00); Lymphocytes % (A) 26.7 %; MCH 28.7 pg (27.0-32.0); MCHC 32.9 g/dL (32.0-37.0); MCV 87.1 fL (80.0-97.0); Mean Platelet Volume 9.7 fL (9.5-12.2); Monocytes # (A) 0.69 X 10*3/uL (0.20-1.00); Monocytes % (A) 6.3 %; Neutrophils % (A) 65.3 %; Platelet Count 385 X 10*3/uL (140-440); RDW 12.9 % (11.5-14.5); WBC 10.88 X 10*3/uL (4.50-10.00)
[2021-05-23 22:39] LABS: Phosphorus 4.9 mg/dL (2.4-5.1)
[2021-05-23 23:51] LABS: African American GFR (CKD) 109.9 (60.0-200.0); BUN/Creat Ratio 21.63 Ratio (12.00-20.00); Blood Urea Nitrogen 17.3 mg/dL (9.0-27.0); Calcium 9.7 mg/dL (8.7-10.3); Non-African American GFR(CKD) 94.8 (60.0-200.0); Potassium 4.4 mmol/L (3.5-5.5)
== END | disposition home or self-care (01) ==
LOC: LABWHC1 12:59
PROVIDERS: ATTEND Physician Assistant Surgical
DX: Z09 Encounter for follow-up examination after completed treatment for conditions other than malignant neoplasm (principal); K90.9 Intestinal malabsorption, unspecified
CPT/HCPCS: 36415; 80048; 83735; 84100; 85025

== ENCOUNTER 2021-06-01 10:56 | Emergency (ER) | payer OTHER ==
[2021-06-01] MEDS ORDERED: SODIUM CHLORIDE 0.9% 1,000 ML IV STA (12:18)
[2021-06-01] MEDS ORDERED: IOPAMIDOL CONTRAST (ORAL USE) VIAL PO PRN (12:18)
[2021-06-01 12:50] LABS: Basophils % (A) 0 %; Eosinophils # (A) 0.2 k/uL (0-0.7); Eosinophils % (A) 2 %; HGB 14.4 gm/dL (11.4-16.0); Lymphocytes # (A) 2.3 k/uL (1.0-4.8); Lymphocytes % (A) 29 %; MCH 29.2 pg (25.0-35.0); MCHC 35.1 g/dL (31.0-37.0); MCV 83.3 fL (80.0-100.0); Mean Platelet Volume 7.2; Monocytes # (A) 0.4 k/uL (0-1.0); Monocytes % (A) 4 %; Neutrophils # (A) 5.1 k/uL (1.3-7.7); Neutrophils % (A) 62 %; Platelet Count 339 k/uL (150-450); RBC 4.92 m/uL (3.80-5.40); RDW 13.7 % (11.5-15.5); WBC 8.2 k/uL (3.8-10.6)
[2021-06-01 13:09] LABS: ALT 45 U/L (4-34); AST 40 U/L (14-36); African American GFR (CKD) >90 (>60 ml/min/1.73 sqM); Albumin 4.1 g/dL (3.5-5.0); Alkaline Phosphatase 71 U/L (38-126); Amylase 55 U/L (30-110); Anion Gap 14 mmol/L; Blood Urea Nitrogen 18 mg/dL (7-17); Calcium 9.6 mg/dL (8.4-10.2); Carbon Dioxide 21 mmol/L (22-30); Chloride 103 mmol/L (98-107); Glucose 83 mg/dL (74-99); Lipase 721 U/L (23-300); Non-African American GFR(CKD) >90 (>60 ml/min/1.73 sqM); Potassium 3.5 mmol/L (3.5-5.1); Sodium 138 mmol/L (137-145); Total Bilirubin 0.5 mg/dL (0.2-1.3); Total Protein 7.3 g/dL (6.3-8.2)
--- NOTE | 2021-06-01 13:52 | ED ---
Abdominal Pain HPI - General Chief Complaint: Abdominal Pain Stated Complaint: Post Sleeve/abd pain Time Seen by Provider: 06/01/21 11:38 Source: patient, RN notes reviewed Mode of arrival: ambulatory Limitations: no limitations - History of Present Illness Initial Comments: This a 35 year old female presents emergency Department chief complaint abdomina l pain. Patient states she is 2 weeks status post gastric sleep. Patient states that last night she went to sit up states that she used her abdominal muscles and states that she felt a ripping sensation and she's had increase in pain. She did contact her surgeon who advised her to be seen on Wednesday or if worsened to be seen at the ER. She has any fevers chills no nausea vomiting patient is on a soft diet at this point. She states that the pain seems any moving around and spreading at this point no chest pain or shortness breath. - Related Data Home Medications Medication Instructions Recorded Confirmed Acetaminophen [Tylenol Extra 1,000 mg PO Q6H PRN 06/01/21 06/01/21 Strength] Escitalopram [Lexapro] 20 mg PO DAILY 06/01/21 06/01/21 Metoclopramide HCl [Reglan] 10 mg PO Q6H PRN 06/01/21 06/01/21 Omeprazole 20 mg PO BID 06/01/21 06/01/21 Simethicone [Gas-X] 125 mg PO BID PRN 06/01/21 06/01/21 Allergies Allergy/AdvReac Type Severity Reaction Status Date / Time topiramate [From Topamax] Allergy Swelling/It Verified 06/01/21 13:52 haley Review of Systems ROS Statement: Those systems with pertinent positive or pertinent negative responses have been documented in the HPI. ROS Other: All systems not noted in ROS Statement are negative. Past Medical History Past Medical History: Diabetes Mellitus Additional Past Medical History / Comment(s): hx gestational diabetes-2 pregnancies, gallstones, History of Any Multi-Drug Resistant Organisms: None Reported Past Surgical History: Cholecystectomy, Orthopedic Surgery, Tonsillectomy Additional Past Surgical History / Comment(s): pam heel sugery, gastric sleeve Past Anesthesia/Blood Transfusion Reactions: No Reported Reaction Past Psychological History: No Psychological Hx Reported Past Alcohol Use History: None Reported Past Drug Use History: None Reported - Past Family History Mother Family Medical History: No Reported History General Exam Limitations: no limitations General appearance: alert, in no apparent distress Head exam: Present: atraumatic, normocephalic, normal inspection Eye exam: Present: normal appearance, PERRL, EOMI. Absent: scleral icterus, conjunctival injection, periorbital swelling Respiratory exam: Present: normal lung sounds bilaterally. Absent: respiratory distress, wheezes, rales, rhonchi, stridor Cardiovascular Exam: Present: regular rate, normal rhythm, normal heart sounds. Absent: systolic murmur, diastolic murmur, rubs, gallop, clicks GI/Abdominal exam: Present: soft, tenderness, normal bowel sounds. Absent: distended, guarding, rebound, rigid Back exam: Absent: CVA tenderness (R), CVA tenderness (L) Neurological exam: Present: alert, oriented X3 Course Vital Signs 06/01/21 11:17 Temperature 98.9 F Pulse Rate 77 Respiratory 18 Rate O2 Sat by Pulse 98 Oximetry Medical Decision Making - Medical Decision Making 35-year-old presented for abdominal pain. Patient is postsurgical CT is obtained which showed no acute abnormality. Patient did have mildly elevated lipase though she has no symptoms of this. Patient will follow-up with her surgeon on Wednesday will have her recheck return parameters were discussed. - Lab Data Result diagrams: 06/01/21 12:34 06/01/21 12:34 Lab Results 06/01/21 06/01/21 06/01/21 Range/Units 12:34 12:34 12:34 WBC 8.2 (3.8-10.6) k/uL RBC 4.92 (3.80-5.40) m/uL Hgb 14.4 (11.4-16.0) gm/dL Hct 41.0 (34.0-46.0) % MCV 83.3 (80.0-100.0) fL MCH 29.2 (25.0-35.0) pg MCHC 35.1 (31.0-37.0) g/dL RDW 13.7 (11.5-15.5) % Plt Count 339 (150-450) k/uL MPV 7.2 Neutrophils % 62 % Lymphocytes % 29 % Monocytes % 4 % Eosinophils % 2 % Basophils % 0 % Neutrophils # 5.1 (1.3-7.7) k/uL Lymphocytes # 2.3 (1.0-4.8) k/uL Monocytes # 0.4 (0-1.0) k/uL Eosinophils # 0.2 (0-0.7) k/uL Basophils # 0.0 (0-0.2) k/uL Sodium 138 (137-145) mmol/L Potassium 3.5 (3.5-5.1) mmol/L Chloride 103 (98-107) mmol/L Carbon Dioxide 21 L (22-30) mmol/L Anion Gap 14 mmol/L BUN 18 H (7-17) mg/dL Creatinine 0.70 (0.52-1.04) mg/dL Est GFR (CKD-EPI)AfAm >90 (>60 ml/min/1.73 sqM) Est GFR (CKD-EPI)NonAf >90 (>60 ml/min/1.73 sqM) Glucose 83 (74-99) mg/dL Plasma Lactic Acid Pedro 0.7 (0.7-2.0) mmol/L Calcium 9.6 (8.4-10.2) mg/dL Total Bilirubin 0.5 (0.2-1.3) mg/dL AST 40 H (14-36) U/L ALT 45 H (4-34) U/L Alkaline Phosphatase 71 (38-126) U/L Total Protein 7.3 (6.3-8.2) g/dL Albumin 4.1 (3.5-5.0) g/dL Amylase 55 (30-110) U/L Lipase 721 H (23-300) U/L Disposition Clinical Impression: Abdominal wall strain, Abdominal pain Disposition: HOME SELF-CARE Condition: Stable Instructions (If sedation given, give patient instructions): Abdominal Pain (ED) Additional Instructions: Please return to the Emergency Department if symptoms worsen or any other concerns. Is patient prescribed a controlled substance at d/c from ED?: No Referrals: Lucie Kennedy DO [Primary Care Provider] - 1-2 days Time of Disposition: 14:45
--- NOTE | 2021-06-01 14:18 | CT ---
EXAMINATION TYPE: CT abdomen pelvis w con DATE OF EXAM: 06/01/2021 COMPARISON: None HISTORY: Post gastric sleeve/abdominal pain CT DLP: 1637.6 mGycm Automated exposure control for dose reduction was used. TECHNIQUE: Helical acquisition of images was performed from the lung bases through the pelvis. CONTRAST: Performed with Oral Contrast and with IV Contrast, patient injected with 100-bariatric prep mL of Iso rishi 300. FINDINGS: LUNG BASES: No significant abnormality is appreciated. LIVER/GB: No significant abnormality is appreciated. The gallbladder is absent. PANCREAS: No significant abnormality is seen. SPLEEN: No significant abnormality is seen. ADRENALS: No significant abnormality is seen. KIDNEYS: No significant abnormality is seen. Delayed imaging demonstrates normal contrast excretion b ilaterally. FREE AIR: No free air is visualized. RETROPERITONEAL ADENOPATHY: None visualized REPRODUCTIVE ORGANS: No significant abnormality is seen URINARY BLADDER: Underdistended limiting assessment. PELVIC ADENOPATHY: None visualized. OSSEOUS STRUCTURES: No significant abnormality is seen. BOWEL: Gastric sleeve surgery. No wall thickening or pericolonic fat stranding. No free intraperiton eal air or fluid. OTHER: No hazy/fat stranding of the anterior abdominal fat is nonspecific but likely relates to proce dure. IMPRESSION: NO ACUTE PROCESS IN THE ABDOMEN OR PELVIS.
[2021-06-01 14:59] LABS: Appearance,Urine Cloudy (Clear); Bacteria,Urine Occasional /hpf; Bilirubin,Urine 1+ (Negative); Blood,Urine Negative (Negative); Color,Urine Yellow; Glucose,Urine (UA) Negative (Negative); Hyaline Casts,Urine 2 /lpf (0-2); Ketones,Urine 4+ (Negative); Leukocyte Esterase,Urine Large (Negative); Mucus,Urine Moderate /hpf; Nitrite,Urine Negative (Negative); PH, Urine 5.5 (5.0-8.0); Protein,Urine 2+ (Negative); RBC,Urine 5 /hpf (0-5); Specific Gravity,Urine 1.045 (1.001-1.035); Squamous Epithelial Cell,Urine 14 /hpf (0-4); WBC,Urine 18 /hpf (0-5)
[2021-06-01 15:16] VITALS: BP 112/71; PULSE 72; RESP 16; TEMP 97.9
== END 2021-06-01 15:15 | disposition home or self-care (01) ==
LOC: EC 10:56
DX: S39.011A Strain of muscle, fascia and tendon of abdomen, initial encounter (principal); E11.9 Type 2 diabetes mellitus without complications; Z88.8 Allergy status to other drugs, medicaments and biological substances; X58.XXXA Exposure to other specified factors, initial encounter
CPT/HCPCS: 36415; 80053; 82150; 83605; 83690; 85025; 81001; 87086; 74177; 99284; 96360; 96361; Q9967

== ENCOUNTER → 2021-06-05 | Outpatient (CLI) | payer OTHER ==
[2021-06-05 09:30] LABS: Albumin 4.5 g/dL (3.5-5.0); Albumin/Globulin Ratio 1.5; Bilirubin,Unconjugated 0.2 mg/dL (0.0-1.1); Globulin 3.1 g/dL; Total Bilirubin 0.5 mg/dL (0.2-1.3); Total Protein 7.6 g/dL (6.3-8.2)
== END | disposition home or self-care (01) ==
LOC: LABWHC1 08:42
PROVIDERS: ATTEND Surgery Surgical Critical Care
DX: K85.90 Acute pancreatitis without necrosis or infection, unspecified (principal); Z98.890 Other specified postprocedural states
CPT/HCPCS: 36415; 80076; 82150; 83690

== ENCOUNTER → 2024-08-11 | Outpatient (CLI) | payer BC ==
--- NOTE | 2024-08-12 08:22 | CT ---
EXAMINATION TYPE: CT abdomen pelvis w con DATE OF EXAM: 08/11/2024 6:53 PM COMPARISON: 2 06/01/2021 CLINICAL INDICATION: Female, 39 years old with history of R10.32 LEFT LOWER QUADRANT PAIN, weight los s, LLQ pain TECHNIQUE: Axial images were obtained from above the diaphragm to the pubic rami in the axial plane a t 5 mm thick sections. Reconstructed images are reviewed on the computer in the coronal plane. CONTRAST: 100 mL of Isovue 300. Study performed with Oral Contrast DLP: 474.3 mGycm, Automated exposure control for dose reduction was used. FINDINGS: Limited CT sections are obtained the lung bases. The lung bases are clear. CT ABDOMEN: Liver: Normal Spleen: Normal Pancreas: Normal Adrenal glands: The adrenal glands are normal. Gallbladder: Absent Kidneys: No masses are evident. No hydronephrosis is present. No cysts are present. Delayed images were obtained through the kidneys, which remain unremarkable. Aorta: Normal Inferior vena cava: Normal. CT PELVIS: Loops of bowel within the abdomen and pelvis are normal. There are loops of bowel which are incom pletely distended or lack oral contrast limiting their evaluation. Appendix: Normal as visualized. Urinary bladder: Normal. Genitourinary structures: Uterus is normal. Adnexa are unremarkable. Osseous structures: No suspicious lytic or sclerotic lesions. Degenerative disc changes present L5-S1 . IMPRESSION: 1. No suspicious abnormality to account for left lower quadrant pain X-Ray Jamil Amin, Workstation: [email or web address], 08/12/2024 8:20 AM
== END | disposition home or self-care (01) ==
LOC: RADCTMAIN 16:56
PROVIDERS: ATTEND Family Medicine
DX: R10.32 Left lower quadrant pain (principal); R63.4 Abnormal weight loss
CPT/HCPCS: 74177; Q9967